=== PATIENT | female | born 1955 | race African-American/Black ===

== ENCOUNTER 2019-07-03 14:44 | Emergency (ER) | payer MEDICARE, OTHER ==
[~2019-07-03] VITALS: Ht 162.6 cm; Wt 75.7 kg
[2019-07-03] MEDS ORDERED: cholesterol pill (15:00)
[2019-07-03] MEDS ORDERED: ASPIR 8181 MG ORAL (15:00)
[2019-07-03] MEDS ORDERED: TRAMADOL HCL50 MG ORAL (15:00)
[2019-07-03] MEDS ORDERED: [UNRECOGNIZED DRUG - OTHER] (15:00)
[2019-07-03] MEDS ORDERED: Acetaminophen 500mg (ES) tab ORAL ONE (15:30)
--- NOTE | 2019-07-03 15:40 | NUR ---
ED Nurse Note:pt. came with c/o left hip pain radiating down, possible sciatica, no injury reported, x-ray done, pain meds are given
[2019-07-03] MEDS ORDERED: TYLENOL EXTRA500 MG ORAL (16:24)
[2019-07-03] MEDS ORDERED: LIDODERM700 M1 TOPIC (16:24)
--- NOTE | 2019-07-03 16:29 | Diagnostic Imaging Report ---
Indication: Back pain Technique: 3 views of the lumbar spine Comparison: None Findings: There is lumbar dextroscoliotic deformity. There is degenerative narrowing of the L3-4 disc. There is anterior offset of L3 on L4, probably degenerative in nature. The remainder of the bony alignment is normal. Vertebral body heights are preserved. The the remaining disc spaces are preserved. No acute fractures. No dislocations. The included soft tissues are unremarkable Impression: Degenerative changes and scoliosis, as described No acute bony trauma
--- NOTE | 2019-07-03 16:45 | NUR ---
ER DISCHARGE NOTE: Patient is cleared to be discharged per ERMD, pt is aox4, on room air, with stable vital signs. pt was given dc and prescription instructions, pt was able to verbalize understanding, pt is able to ambulate with steady gait. pt took all belongings.
[2019-07-03 16:57] VITALS: BP 140/79
--- NOTE | 2019-07-03 22:28 | Emergency Room Report ---
History of Present Illness General Chief Complaint: Lower Extremity Injury Source: Patient Present Illness HPI 63-year-old female resents ED for evaluation. Complaining of pain in her back radiating down her left leg. 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 Pain is throbbing, 7 out of 10, radiating down the left leg. Denies any incontinence. Denies any leg or motor weakness. Notes history of back pain in the past. No other aggravating relieving factors. Denies any other associated symptoms Allergies: Coded Allergies: PENICILLINS (Verified Allergy, Severe, Itching, 07/03/19) Patient History Past Medical History: HTN Past Surgical History: none Pertinent Family History: none Social History: Denies: smoking, alcohol use, drug use Last Menstrual Period: na Now: No Immunizations: UTD Reviewed Nursing Documentation: PMH: Agreed; PSxH: Agreed Nursing Documentation-PMH Past Medical History: No History, Except For Hx Cardiac Problems: Yes - high cholesterol Hx Hypertension: Yes Review of Systems All Other Systems: negative except mentioned in HPI Physical Exam Vital Signs Date Time Temp Pulse Resp B/P (MAP) Pulse Ox O2 Delivery O2 Flow Rate FiO2 07/03/19 14:55 98.2 72 20 140/79 (99) 98 Room Air Sp02 EP Interpretation: reviewed, normal General Appearance: no apparent distress, alert, GCS 15, non-toxic Head: normocephalic Eyes: bilateral eye normal inspection, bilateral eye PERRL ENT: normal ENT inspection Neck: normal inspection Respiratory: normal inspection Cardiovascular #1: normal inspection Gastrointestinal: normal inspection Rectal: deferred Genitourinary: no CVA tenderness Musculoskeletal: gait/station normal, normal range of motion, non-tender, tender - paraspinal lumbar tederness Neurologic: alert, oriented x3, responsive, motor strength/tone normal, sensory intact, speech normal, other - SLR positive Psychiatric: normal inspection Skin: no rash Lymphatic: normal inspection Medical Decision Making Diagnostic Impression: Primary Impression: Sciatica Qualified Codes: M54.32 - Sciatica, left side ER Course Hospital Course 63 yo F presents with back pain radiating down L leg Differential diagnoses include: Fracture, dislocation, sprain, contusion Clinical course Patient placed on stretcher. After initial history and physical, I ordered pain medications and Xrays of L spine xray shows degenerative changes pronounced at L3/L4. Otherwise no fracture Clinical consideration for sciatica given positive straight leg raise. No focal deficits. No incontinence. On reassessment pain is improved. Discussed findings with patient. Safe for discharge for close outpatient follow-up. States she has a PMD. I will provide referrals Diagnosis - sciatica Stable and discharged to home with prescription for tylenol, lidoderm. Followup with PMD. Return to ED if symptoms recur or worsen Other X-Ray Diagnostic Results Other X-Ray Diagnostic Results : X-Ray ordered: L spine # of Views/Limited Vs Complete: 3 View Indication: Pain EP Interpretation: Yes Interpretation: no dislocation, no soft tissue swelling, no fractures, other - degenerative narrowing of L3-L4 disk Impression: Other - DJD Electronically Signed by: Electronically signed by Obed Estes MD Last Vital Signs Date Time Temp Pulse Resp B/P (MAP) Pulse Ox O2 Delivery O2 Flow Rate FiO2 07/03/19 16:57 100.3 89 20 140/79 98 Room Air Status: improved Disposition: HOME, SELF-CARE Condition: Stable Scripts Lidocaine Patch* (Lidoderm Patch*) 1 Each Adh..patch 1 PATCH TOPIC DAILY, #7 PATCH 0 Refills Patch(es) may remain in place for up to 12 hours in any 24-hour period. Prov: Obed Estes MD 07/03/19 Acetaminophen* (TYLENOL EXTRA STRENGTH*) 500 Mg Tablet 500 MG ORAL Q8H PRN for Prn Headache/Temp > 101, #30 TAB 0 Refills Prov: Obed Estes MD 07/03/19 Referrals: NON PHYSICIAN (PCP) [facility] Open 24 hour /7 days a week by Appointment Only [address] [facility] [address] [facility] [address] Patient Instructions: Sciatica, [id number] Obed Estes MD Jul 03, 2019 22:28
== END 2019-07-03 16:50 | disposition home or self-care (01) ==
LOC: EMR 15:30
DX: M54.42 Lumbago with sciatica, left side (principal); I10 Essential (primary) hypertension; E78.00 Pure hypercholesterolemia, unspecified; Z88.0 Allergy status to penicillin
CPT/HCPCS: 72020; 99283

== ENCOUNTER 2021-01-12 15:23 | Emergency (ER) | payer OTHER ==
[~2021-01-12] VITALS: Ht 160 cm; Wt 82.1 kg
[~2021-01-12 15:23] MED LIST: ASPIR 8181 MG ORAL; LIDODERM700 M1 TOPIC; TRAMADOL HCL50 MG ORAL; TYLENOL EXTRA500 MG ORAL; [UNRECOGNIZED DRUG - OTHER]; cholesterol pill
--- NOTE | 2021-01-12 15:50 | NUR ---
Pt sent to ED by PCP after visit today at 1400. Per patient, PCP reported an arrhythmia while patient was in the office. Pt is asymptomatic at this time with no c/o CP, SOB, dizziness, N/V, GI or issues, or focal numbness or tingling at this time. Pt has Hx of HTN and takes tramadol for sciatica. Otherwise, pt is AxO x4.
[2021-01-12 15:59] VITALS: BP 140/80
--- NOTE | 2021-01-12 16:12 | Emergency Room Report ---
History of Present Illness General Chief Complaint: General Complaint Source: Patient Present Illness HPI Patient is a 65-year-old female past medical history of hypertension who presents to the ER for possible irregular heartbeat evaluation. Patient states that she went for general checkup with her primary care physician who thought that her heart rate was irregular so she referred her to the emergency room to evaluate for possible arrhythmia. Patient denies any symptoms. Specifically she denies any weakness, chest pain, shortness of breath or palpitations. She states that this was a general checkup and she feels completely fine. 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 Patient History Reviewed Nursing Documentation: PMH: Agreed; PSxH: Agreed Nursing Documentation-PMH Hx Cardiac Problems: Yes - high cholesterol Hx Hypertension: Yes Review of Systems All Other Systems: negative except mentioned in HPI Physical Exam Vital Signs Date Time Temp Pulse Resp B/P (MAP) Pulse Ox O2 Delivery O2 Flow Rate FiO2 01/12/21 15:34 98.2 78 18 147/86 (106) 95 Room Air Sp02 EP Interpretation: reviewed, normal General Appearance: no apparent distress, alert, GCS 15, non-toxic Head: normocephalic, atraumatic Eyes: bilateral eye normal inspection, bilateral eye PERRL ENT: hearing grossly normal, normal pharynx, no angioedema, normal voice Neck: full range of motion, supple/symm/no masses Respiratory: chest non-tender, lungs clear, normal breath sounds, speaking full sentences Cardiovascular #1: normal inspection, regular rate, rhythm Gastrointestinal: normal bowel sounds, non tender, soft, non-distended, no guarding, no rebound Rectal: deferred Genitourinary: no CVA tenderness Musculoskeletal: normal range of motion, no calf tenderness, no lower extremity edema 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 Patient's EKG consistent with sinus rhythm with some PACs. I given the patient a copy of her EKG to take to her primary care physician. Patient already has outpatient fasting labs scheduled by her primary care physician that she will obtain. No further work-up is warranted at this time. After discussing risks and benefits of further diagnostics, treatment plans, as well as indications for and risks of admission, the patient is agreeable to being discharged home. I have explained that their evaluation and treatment in the emergency department today is an important step towards them achieving better health but that their evaluation today is not intended to replace further evaluation and treatment by a physician in their local clinic. I have explained that while the current findings suggest no immediate life t hreatening emergency they will require further evaluation and treatment by a physician of their choice in their area. They understand that it will be necessary for them to review the final reports of their ED visit with their clinic physician. We have reviewed indications for return to the Emergency Department. I have explained that additional time may need to pass and/or additional testing as an outpatient may be necessary before a definitive diagnosis can be made. They tell me they are willing to follow up as instructed within the timeframe I recommend. They appear to understand what we discussed. Additionally they understand that if they are unable to be seen by an outpatient physician they are welcome, and in fact should, return to the Emergency De partment for a repeat evaluation. The patient is stable at time of discharge. EKG Diagnostic Results Troponin ordered: No EKG Time: 15:03 EP Interpretation: Sharyn De Anda MD Rate: normal - 77 bpm Rhythm: NSR - sinus rhythm with PACs ST Segments: no acute changes ASA given to the pt in ED: No Rhythm Strip Diag. Results Rhythm Strip Time: 17:12 EP Interpretation: yes - Sharyn De Anda MD Rate: 70 bpm Rhythm: NSR, no PVC's, no ectopy Chest X-Ray Diagnostic Results Chest X-Ray Diagnostic Results : Chest X-Ray Ordered: Yes # of Views/Limited/Complete: 2 View Indication: Other - Medical screening exam EP Interpretation: Yes Interpretation: no consolidation, no effusion, no pneumothorax, no acute cardiopulmonary disease Impression: No acute disease Electronically Signed by: Sharyn De Anda MD Last Vital Signs Date Time Temp Pulse Resp B/P (MAP) Pulse Ox O2 Delivery O2 Flow Rate FiO2 01/12/21 15:59 78 18 Room Air 01/12/21 15:59 140/80 100 01/12/21 15:34 98.2 Disposition: HOME, SELF-CARE Condition: Stable Referrals: [facility],REFERRING (PCP) Additional Instructions: The patient was provided with discharge instructions, notified to follow-up with a primary care doctor and or specialist in the next 24-48 hours, and to return to the ED if they have worsening of their symptoms. Please note that this report is being documented using [employer] technology. This can lead to erroneous entry secondary to incorrect interpretation by the dictating instrument. Sharyn De Anda M.D. Jan 12, 2021 16:12
--- NOTE | 2021-01-12 16:26 | NUR ---
pt placed on continuous cardiac/Os monitor. VSS. pt denies CP/SOB. IV placed, EKG performed. will continue to monitor.
--- NOTE | 2021-01-12 16:57 | Diagnostic Imaging Report ---
Indication: Chest pain Technique: XRAY Chest 1v Comparison: None Findings: Heart is enlarged. Mediastinal contours are sharp. No definite focal airspace consolidation. No pleural effusion, pneumothorax or radiographic evidence of pulmonary edema. No acute osseous abnormality. Impression: No radiographic evidence of acute cardiopulmonary disease.
[2021-01-12 17:28] VITALS: BP_SYST 70
--- NOTE | 2021-01-12 17:28 | NUR ---
ED Nurse Note: Pt cleared by health care Provider for discharge. DC instructions/prescription was given and explained to pt and verbalized understanding of teachings. All medical deviecs such as ID band removed. Pt is AAO x4, ambulatory and left with all personal belongings.
--- NOTE | 2021-01-13 12:01 | Cardiology Report ---
APPROVED REPORT EKG Measurement Heart [id number] <Conclusion> Sinus rhythm with premature atrial complexes Possible Anterior infarct, age undetermined Abnormal ECG
--- NOTE | 2021-01-13 16:18 | Diagnostic Imaging Report ---
Procedure: XRAY Chest 1v Reason for study: Chest pain Comparison films: 01/12/2021. FINDINGS: A single lateral view of the chest is obtained to augment earlier frontal view. Vascularity is normal. Mild interstitial prominence noted but no acute alveolar process is noted. Cardiac and mediastinal silhouette are within normal limits. No significant effusion seen. The bony thorax appear unremarkable. IMPRESSION: NO ACUTE CARDIOPULMONARY DISEASE ON THIS LATERAL PROJECTION..
== END 2021-01-12 17:29 | disposition home or self-care (01) ==
LOC: EMR 15:59
DX: I49.1 Atrial premature depolarization (principal); I10 Essential (primary) hypertension; Z88.0 Allergy status to penicillin
CPT/HCPCS: 71045; 93005; 99284